=== PATIENT | male | born 1930 | race Caucasian/White ===

== ENCOUNTER 2020-01-07 15:13 | Emergency (ER) | payer OTHER ==
[~2020-01-07] VITALS: Ht 162.6 cm; Wt 74.8 kg
--- NOTE | 2020-01-07 15:23 | NUR ---
BRYON FROM HOME TO ER BED 4. AAOX4. NOT IN RESP DISTRESS, BREATHING EVEN AND UNLABORED. CAME IN FOR A MECHANICAL GROUND LEVEL FALL. PER PT, HE TRIPPED, FELL AND HIT HIS HIS HEAD BY THE RIGHT EYE. DENIES ANY K.O. PRIOR AND AFTER THE FALL. NOTED A LACERATION ON THE RIGHT OUTER ASPECT OF THE EYE. V SHAPED 1CM LONG.BLEEDING MODERATELY, PT REPORTS TAKING PLAVIX. DENIES ANY PAIN OTHER THAT THE WOUND SITE. AWAITING MD FOR EVAL.
[2020-01-07] MEDS ORDERED: TDAP [DIPH/PERTUSSIS/TET] 0.5 ML VIAL IM ONE ×2 (15:58→16:00)
[2020-01-07 16:05] LABS: BASOPHILS # (AUTO) 0.1 /CMM (0.0-0.2); BASOPHILS % (AUTO) 0.9 % (0.0-2.0); EOSINOPHILS % (AUTO) 4.3 % (0.0-6.0); HEMATOCRIT 41 % (39-51); HEMOGLOBIN 13.6 g/dL (13.5-17.5); LYMPHOCYTES # (AUTO) 1.3 /CMM (0.8-4.8); LYMPHOCYTES % (AUTO) 21.7 % (20.0-44.0); MEAN CORPUSCULAR HGB CONC 33 g/dl (31.0-36.0); MEAN CORPUSCULAR VOLUME 98 fL (80-96); MONOCYTES # (AUTO) 0.7 /CMM (0.1-1.30); NEUTROPHILS # (AUTO) 3.8 /CMM (1.8-8.9); NEUTROPHILS % (AUTO) 62.1 % (43.0-81.0); PLATELET COUNT (AUTO) 178 /CMM (150-450); RED BLOOD CELL COUNT(AUTO) 4.19 MIL/uL (4.5-6.0); WHITE BLOOD COUNT (AUTO) 6.2 K/uL (4.3-11.0)
--- NOTE | 2020-01-07 16:05 | NUR ---
EMT AT BEDSIDE FOR WOUND CLEANING
[2020-01-07 16:34] LABS: CALCIUM, SERUM 8.6 mg/dL (8.5-10.1); POTASSIUM 4.6 mmol/L (3.5-5.1)
[2020-01-07] MEDS ORDERED: LIDOCAINE 1%-EPI 1:100,000 20 ML VIAL ONE (17:34)
[2020-01-07 19:18] VITALS: BP 128/81
--- NOTE | 2020-01-07 19:19 | NUR ---
Patient discharged to home in stable condition. Written and verbal after care instructions given. Patient verbalizes understanding of instruction.IV removed. Catheter intact and site benign. Pressure and 4x4 applied to site. No bleeding noted.
== END 2020-01-07 19:19 | disposition home or self-care (01) ==
LOC: ER 15:18
DX: S01.111A Laceration without foreign body of right eyelid and periocular area, initial encounter (principal); S05.11XA Contusion of eyeball and orbital tissues, right eye, initial encounter; I25.10 Atherosclerotic heart disease of native coronary artery without angina pectoris; F32.9 Major depressive disorder, single episode, unspecified; E78.5 Hyperlipidemia, unspecified; E11.9 Type 2 diabetes mellitus without complications; Z90.79 Acquired absence of other genital organ(s); Z86.73 Personal history of transient ischemic attack (TIA), and cerebral infarction without residual deficits; Z88.1 Allergy status to other antibiotic agents; W18.09XA Striking against other object with subsequent fall, initial encounter; Y93.89 Activity, other specified; Y92.89 Other specified places as the place of occurrence of the external cause; Y99.8 Other external cause status
CPT/HCPCS: 12011; 36415; 70450; 70486; 72125; 80048; 85025; 85730; 90471; 90715; 99285; A6403; J3490